=== PATIENT | male | born 1975 | race African-American/Black ===

== ENCOUNTER 2019-03-08 08:35 | Emergency (ER) | payer BC, OTHER ==
[2019-03-08 08:41] VITALS: BP 135/84; PULSE 65; TEMP 98.4; BMI 36.2
[2019-03-08] MEDS ORDERED: IBUPROFEN 400 MG TABLET (FP) PO ONE ×2 (09:09→09:12)
--- NOTE | 2019-03-08 10:05 | PDOC ---
History of Present Illness - General Chief Complaint: Sore Throat Stated Complaint: SORE THROAT Time Seen by Provider: 03/08/19 09:03 History Source: Patient - History of Present Illness Timing/Duration: reports: yesterday Past History - Past Medical History Allergies/Adverse Reactions: Allergies Allergy/AdvReac Type Severity Reaction Status Date / Time No Known Allergies Allergy Verified 03/08/19 08:37 Home Medications: Ambulatory Orders Ibuprofen 800 mg PO TID PRN #30 tablet 11/13/15 COPD: No - Psycho Social/Smoking Cessation Hx Smoking History: Never smoked Have you smoked in the past 12 months: No Number of Cigarettes Smoked Daily: 3 'Breaking Loose' booklet given: 11/13/15 Hx Alcohol Use: No Drug/Substance Use Hx: No Substance Use Type: None Review of Systems - Review of Systems Constitutional: Yes: Chills. No: Fever HEENTM: Yes: Throat Pain. No: Ear Pain Respiratory: No: Cough *Physical Exam - Vital Signs Last Vital Signs Temp Pulse Resp BP Pulse Ox 98.4 F 65 16 135/84 100 03/08/19 08:38 03/08/19 08:38 03/08/19 08:38 03/08/19 08:38 03/08/19 08:38 - Physical Exam General Appearance: Yes: Appropriately Dressed. No: Apparent Distress HEENT: positive: Normal ENT Inspection, Normal Voice, TMs Normal, Pharynx Normal. negative: Scleral Icterus (R), Scleral Icterus (L) Neck: positive: Supple. negative: Lymphadenopathy (R), Lymphadenopathy (L) Respiratory/Chest: negative: Respiratory Distress Integumentary: positive: Dry, Warm Neurologic: positive: Fully Oriented, Alert, Normal Mood/Affect ED Treatment Course - Medications Given in the ED: ED Medications Discontinued Medications Generic Name Dose Route Start Last Admin Trade Name Freq PRN Reason Stop Dose Admin Ibuprofen 800 mg 03/08/19 09:12 03/08/19 09:13 Motrin - PO 03/08/19 09:13 800 mg ONCE ONE Administration Medical Decision Making - Medical Decision Making 03/08/19 10:02 44 yo M, no sog hx, here w/ sore throat x 2 days. No cough, ear pain, f/c. Has not taken anything for pain see exam M/l viral pharyngitis Exam wnl Rapid strep neg Dc w/ pain control Discharge - Discharge Information Problems reviewed: Yes Clinical Impression/Diagnosis: Pharyngitis Qualifiers: Pharyngitis/tonsillitis etiology: unspecified etiology Qualified Code(s): J02.9 - Acute pharyngitis, unspecified Condition: Improved Disposition: HOME - Follow up/Referral - Patient Discharge Instructions Patient Printed Discharge Instructions: Viral Pharyngitis Additional Instructions: Your strep is negative Take motrin as every 6 hrs as needed for pain - Post Discharge Activity Work/Back to School Note: Back to Work
== END 2019-03-08 10:18 | disposition home or self-care (01) ==
LOC: JERFT 08:35
DX: J02.9 Acute pharyngitis, unspecified (principal)
CPT/HCPCS: 87070; 87880; 99282-25

== ENCOUNTER 2021-07-21 19:13 | Inpatient (IN) | payer OTHER ==
[2021-07-21] MEDS ORDERED: ACETAMINOPHEN 1000 MG/100 ML BAG IVPB ONE (21:04)
[2021-07-21] MEDS ORDERED: SODIUM CHLORIDE 0.9% 500 ML INFUS.BAG IV ONE (21:04)
[2021-07-21] MEDS ORDERED: LIDOCAINE 5% TOPICAL PATCH TP ONE (21:05)
[2021-07-21] MEDS ORDERED: LIDOCAINE 5% TOPICAL PATCH ONE (21:18)
[2021-07-21] MEDS ORDERED: ACETAMINOPHEN INJECTION 100 ML IVPB ONE (21:18)
[2021-07-21] MEDS ORDERED: ONDANSETRON 4 MG/2 ML VIAL IVPUSH ONE (21:22)
[2021-07-21] MEDS ORDERED: morphine CARPU-JECT 4 MG/1 ML DISP.SYRIN IVPUSH ONE (21:22)
[2021-07-21] MEDS ORDERED: morphine SULFATE 4 MG/ML VIAL ONE (21:24)
[2021-07-21] MEDS ORDERED: ONDANSETRON 4 MG/2 ML VIAL ONE (21:25)
[2021-07-21 21:53] LABS: BASO % 0.2 % (0-2.0); EOS % 0.4 % (0-4.5); HEMATOCRIT 41.9 % (35.4-49); HEMOGLOBIN 13.8 GM/dL (11.7-16.9); LYMPH % 13.2 % (8-40); MCH 29.1 pg (25.7-33.7); MCHC 32.9 g/dl (32.0-35.9); MEAN CELL VOLUME 88.5 fl (80-96); MEAN PLT VOLUME 8.5 fl (7.5-11.1); MONO % 4.3 % (3.8-10.2); NEUT % 81.9 % (42.8-82.8); PLATELET COUNT 216 10^3/uL (134-434); RBC 4.74 M/mm3 (4.00-5.60); RDW 14.2 % (11.9-15.9); WHITE BLOOD COUNT 12.4 K/mm3 (4.0-10.0)
[2021-07-21 22:04] LABS: INR 1.06 (0.83-1.09); PROTHROMBIN TIME (PATIENT) 12.2 SEC (9.7-13.0)
[2021-07-21 22:07] LABS: ACTIVATED PTT 27.6 SECONDS (25.2-36.5)
[2021-07-21 22:18] LABS: CALCIUM 9.3 mg/dL (8.5-10.1)
[2021-07-21 22:19] LABS: BLOOD UREA NITROGEN 12.2 mg/dL (7-18)
[2021-07-21 22:22] LABS: CREATININE 1.8 mg/dL (0.55-1.3)
[2021-07-21 22:23] LABS: TOT PROT 7.8 g/dl (6.4-8.2)
[2021-07-21 22:24] LABS: BILIRUBIN,TOTAL 0.5 mg/dL (0.2-1)
[2021-07-21] MEDS ORDERED: morphine CARPU-JECT 2 MG/1 ML DISP.SYRIN IVPUSH ONE (22:37)
[2021-07-21] MEDS ORDERED: KETOROLAC TROMETHAMINE 15 MG/ML VIAL IVPUSH ONE (23:11)
[2021-07-21] MEDS ORDERED: KETOROLAC TROMETHAMINE 15 MG/ML VIAL ONE (23:14)
[2021-07-22] MEDS ORDERED: SODIUM CHLORIDE 0.9% 500 ML INFUS.BAG IV ONE (00:04)
[2021-07-22 01:57] LABS: EPI CELLS 15 /uL (0-25.1); HYALINE CASTS 0 /uL (0-3.1); PH,URINE 8.5 (5.0-8.0); URINE APPEARANCE CLEAR; URINE BACTERIA 13 /uL (0-1359); URINE BILIRUBIN NEGATIVE (NEGATIVE); URINE COLOR YELLOW; URINE GLUCOSE (UA) NEGATIVE (NEGATIVE); URINE KETONE 1+ (NEGATIVE); URINE LEUK ESTERASE NEGATIVE (NEGATIVE); URINE NITRITE NEGATIVE (NEGATIVE); URINE PROTEIN NEGATIVE (NEGATIVE); URINE RBC 247 /uL (0-23.9); URINE UROBILINOGEN 0.2 mg/dL (0.2-1.0); URINE WBC 8 /uL (0-25.8)
[2021-07-22] MEDS ORDERED: TAMSULOSIN HCL 0.4 MG CAP PO ONE (05:32)
[2021-07-22] MEDS ORDERED: TAMSULOSIN HCL 0.4 MG CAP ONE ×2 (05:39→08:18)
[2021-07-22] MEDS ORDERED: ACETAMINOPHEN INJECTION 100 ML IVPB ONE (05:39)
[2021-07-22] MEDS: LACTATED RINGERS SOLUTION 1,000 ML IV SCH ×3 (05:48→12:47)
[2021-07-22] MEDS: ACETAMINOPHEN 1000 MG/100 ML BAG IVPB SCH ×2 (05:48→12:48)
[2021-07-22] MEDS: HEPARIN NA (PORCINE) 5,000 UNITS/ML 1ML VIAL SQ SCH ×3 (07:02→23:05)
[2021-07-22] MEDS: LIDOCAINE PATCH REMOVAL MC SCH ×2 (09:57→23:05)
[2021-07-22 10:10] VITALS: BMI 37.8
[2021-07-22 10:25] LABS: BASO % 0.9 % (0-2.0); EOS % 0.2 % (0-4.5); HEMATOCRIT 41.8 % (35.4-49); HEMOGLOBIN 13.8 GM/dL (11.7-16.9); LYMPH % 22.5 % (8-40); MCH 29.5 pg (25.7-33.7); MEAN CELL VOLUME 89.3 fl (80-96); MEAN PLT VOLUME 8.5 fl (7.5-11.1); NEUT % 70.4 % (42.8-82.8); PLATELET COUNT 211 10^3/uL (134-434); RBC 4.67 M/mm3 (4.00-5.60); RDW 14.2 % (11.9-15.9); WHITE BLOOD COUNT 10.7 K/mm3 (4.0-10.0)
[2021-07-22 10:46] LABS: CALCIUM 8.8 mg/dL (8.5-10.1)
[2021-07-22 10:47] LABS: ALBUMIN 3.4 g/dl (3.4-5.0); BLOOD UREA NITROGEN 11.6 mg/dL (7-18); MAGNESIUM 2.2 mg/dL (1.8-2.4)
[2021-07-22 10:50] LABS: CREATININE 1.6 mg/dL (0.55-1.3); PHOSPHOROUS 3.8 mg/dL (2.5-4.9)
[2021-07-22 10:51] LABS: BILIRUBIN,TOTAL 0.5 mg/dL (0.2-1); TOT PROT 6.6 g/dl (6.4-8.2)
[2021-07-22] MEDS ORDERED: ACETAMINOPHEN 1000 MG/100 ML BAG IVPB PRN (13:54)
[2021-07-23] MEDS: HEPARIN NA (PORCINE) 5,000 UNITS/ML 1ML VIAL SQ SCH ×3 (05:02→21:38)
[2021-07-23] MEDS: LACTATED RINGERS SOLUTION 1,000 ML IV SCH ×3 (05:02→23:00)
[2021-07-23] MEDS ORDERED: TAMSULOSIN HCL 0.4 MG CAP PO SCH (08:30)
[2021-07-23] MEDS: TAMSULOSIN HCL 0.4 MG CAP PO SCH (09:58)
[2021-07-23 10:05] LABS: HEMATOCRIT 40.5 % (35.4-49); HEMOGLOBIN 13.6 GM/dL (11.7-16.9); MCH 29.7 pg (25.7-33.7); MCHC 33.5 g/dl (32.0-35.9); MEAN CELL VOLUME 88.8 fl (80-96); PLATELET COUNT 190 10^3/uL (134-434); RBC 4.56 M/mm3 (4.00-5.60); RDW 13.9 % (11.9-15.9); WHITE BLOOD COUNT 6.8 K/mm3 (4.0-10.0)
[2021-07-23 10:23] LABS: CALCIUM 8.7 mg/dL (8.5-10.1)
[2021-07-23 10:24] LABS: BLOOD UREA NITROGEN 9.2 mg/dL (7-18)
[2021-07-23 10:27] LABS: CREATININE 1.4 mg/dL (0.55-1.3)
[2021-07-23] MEDS: LIDOCAINE PATCH REMOVAL MC SCH (21:38)
[2021-07-24] MEDS: HEPARIN NA (PORCINE) 5,000 UNITS/ML 1ML VIAL SQ SCH ×2 (05:30→13:33)
[2021-07-24] MEDS: TAMSULOSIN HCL 0.4 MG CAP PO SCH (08:15)
[2021-07-24] MEDS: LACTATED RINGERS SOLUTION 1,000 ML IV SCH (08:16)
[2021-07-24 08:57] LABS: HEMATOCRIT 42.5 % (35.4-49); MCH 29.3 pg (25.7-33.7); MCHC 32.8 g/dl (32.0-35.9); MEAN CELL VOLUME 89.1 fl (80-96); MEAN PLT VOLUME 9.5 fl (7.5-11.1); PLATELET COUNT 193 10^3/uL (134-434); RBC 4.77 M/mm3 (4.00-5.60); RDW 14.3 % (11.9-15.9); WHITE BLOOD COUNT 5.8 K/mm3 (4.0-10.0)
[2021-07-24 09:11] LABS: BLOOD UREA NITROGEN 9.4 mg/dL (7-18); CALCIUM 9.1 mg/dL (8.5-10.1)
[2021-07-24 09:14] LABS: CREATININE 1.4 mg/dL (0.55-1.3)
[2021-07-24 15:41] VITALS: BP 145/108; PULSE 76; TEMP 98.2
== END 2021-07-24 15:42 | disposition home or self-care (01) | DRG 465 ==
LOC: JER 19:13 → JERBED 07-22 02:09 → J8W 07-22 09:31
PROVIDERS: ADMIT Hospitalist; ATTEND Internal Medicine
DX: N13.2 Hydronephrosis with renal and ureteral calculous obstruction (principal); E27.8 Other specified disorders of adrenal gland; R00.1 Bradycardia, unspecified; E66.9 Obesity, unspecified; Z68.37 Body mass index [BMI] 37.0-37.9, adult
CPT/HCPCS: 36415; 71275-TC; 74018-TC-FY; 74174-TC; 80048; 80053; 81003; 82626; 83735; 84100; 84484; 85025; 85027; 85610; 85730; 87086; 93005; 93010; 99285-25; C9803-CS; J1644; Q9967; U0003; U0005

== ENCOUNTER 2022-05-09 14:36 | Emergency (ER) | payer OTHER ==
[2022-05-09 15:22] VITALS: BP 123/73; PULSE 89; RESP 18; TEMP 98; BMI 37.6
[2022-05-09] MEDS ORDERED: FAMOTIDINE 20 MG/50 ML IVPB 20 MG/50 ML MG IVPB ONE ×2 (17:10→18:20)
[2022-05-09] MEDS ORDERED: MAG HYDROX/AL HYDROX/SIMETH 30 ML UNIT-DOSE CUP PO ONE (17:10)
[2022-05-09] MEDS ORDERED: MAG HYDROX/AL HYDROX/SIMETH 30 ML UNIT-DOSE CUP ONE (18:20)
[2022-05-09 18:23] LABS: PH,URINE 5.5 (5.0-8.0); URINE APPEARANCE CLEAR; URINE BILIRUBIN NEGATIVE (NEGATIVE); URINE COLOR YELLOW; URINE GLUCOSE (UA) NEGATIVE (NEGATIVE); URINE KETONE TRACE (NEGATIVE); URINE LEUK ESTERASE NEGATIVE (NEGATIVE); URINE NITRITE NEGATIVE (NEGATIVE); URINE PROTEIN TRACE (NEGATIVE)
[2022-05-09 18:24] LABS: BASO % 1.2 % (0-2.0); EOS % 0.8 % (0-4.5); HEMATOCRIT 41.6 % (35.4-49); HEMOGLOBIN 13.7 GM/dL (11.7-16.9); MCH 29.1 pg (25.7-33.7); MCHC 32.8 g/dl (32.0-35.9); MEAN CELL VOLUME 88.6 fl (80-96); MEAN PLT VOLUME 8.1 fl (7.5-11.1); MONO % 5.1 % (3.8-10.2); NEUT % 58.9 % (42.8-82.8); PLATELET COUNT 246 10^3/uL (134-434); RDW 14.8 % (11.9-15.9); WHITE BLOOD COUNT 9.7 K/mm3 (4.0-10.0)
[2022-05-09] MEDS ORDERED: ACETAMINOPHEN 1000 MG/100 ML BAG IVPB ONE (18:34)
[2022-05-09 18:43] LABS: ALBUMIN 3.6 g/dl (3.4-5.0); BLOOD UREA NITROGEN 11.9 mg/dL (7-18); CALCIUM 9.3 mg/dL (8.5-10.1)
[2022-05-09 18:46] LABS: CREATININE 1.6 mg/dL (0.55-1.3)
[2022-05-09 18:48] LABS: BILIRUBIN,TOTAL 0.5 mg/dL (0.2-1); TOT PROT 7.7 g/dl (6.4-8.2)
[2022-05-09] MEDS ORDERED: ACETAMINOPHEN INJECTION 100 ML IVPB ONE (19:03)
[2022-05-09] MEDS ORDERED: LACTATED RINGERS SOLUTION 1000 ML INFUS.BAG IV ONE (19:04)
[2022-05-09 19:51] LABS: CALCIUM 9.3 mg/dL (8.5-10.1)
[2022-05-09 19:52] LABS: BLOOD UREA NITROGEN 11.5 mg/dL (7-18)
[2022-05-09 19:55] LABS: CREATININE 1.4 mg/dL (0.55-1.3)
== END 2022-05-09 20:17 | disposition home or self-care (01) ==
LOC: JER 14:36
PROC: 3E033GC Introduction of Other Therapeutic Substance into Peripheral Vein, Percutaneous Approach (ICD-10-PCS; principal; 2022-05-09)
PROC: 3E033NZ Introduction of Analgesics, Hypnotics, Sedatives into Peripheral Vein, Percutaneous Approach (ICD-10-PCS; 2022-05-09)
DX: N18.9 Chronic kidney disease, unspecified (principal); R10.10 Upper abdominal pain, unspecified; Z20.822 Contact with and (suspected) exposure to COVID-19
CPT/HCPCS: 0241U-QW; 36415; 71046-TC-FY; 74018-TC-FY; 76705-TC; 80048; 80053; 81003; 83690; 84484; 85025; 87086; 93005; 93010; 99285-25

== ENCOUNTER 2022-06-02 10:05 | Emergency (ER) | payer OTHER ==
[2022-06-02 10:09] VITALS: BP 129/79; PULSE 77; RESP 18; TEMP 98.7; BMI 37.6
== END 2022-06-02 11:59 | disposition home or self-care (01) ==
LOC: JER 10:05
DX: R10.13 Epigastric pain (principal)
CPT/HCPCS: 99282-25

== ENCOUNTER 2023-09-15 09:24 | Emergency (ER) | payer OTHER ==
[2023-09-15 09:30] VITALS: BP 133/78; PULSE 57; RESP 16; TEMP 98.1; BMI 34.8
[2023-09-15] MEDS ORDERED: METOCLOPRAMIDE HCL INJECTION 10 MG/2 ML VIAL ONE (09:59)
[2023-09-15] MEDS ORDERED: ACETAMINOPHEN INJECTION 100 ML IVPB ONE (10:00)
[2023-09-15] MEDS: METOCLOPRAMIDE HCL INJECTION 10 MG/2 ML VIAL IVPB ONE (10:14)
[2023-09-15] MEDS: ACETAMINOPHEN 1000 MG/100 ML BAG IVPB ONE (10:14)
[2023-09-15] MEDS: SODIUM CHLORIDE 1,000 ML IV STA (10:14)
[2023-09-15 10:18] LABS: BASO % 0.5 % (0-2.0); EOS % 1.2 % (0-4.5); HEMATOCRIT 41.1 % (35.4-49); HEMOGLOBIN 13.9 GM/dL (11.7-16.9); LYMPH % 40.5 % (8-40); MCH 30.3 pg (25.7-33.7); MCHC 33.7 g/dl (32.0-35.9); MEAN CELL VOLUME 89.8 fl (80-96); MEAN PLT VOLUME 8.1 fl (7.5-11.1); MONO % 4.7 % (3.8-10.2); NEUT % 53.1 % (42.8-82.8); PLATELET COUNT 213 10^3/uL (134-434); RBC 4.57 M/mm3 (4.00-5.60); RDW 14.6 % (11.9-15.9); WHITE BLOOD COUNT 6.8 K/mm3 (4.0-10.0)
[2023-09-15 10:43] LABS: POTASSIUM 4.3 mmol/L (3.5-5.1)
[2023-09-15 10:44] LABS: CALCIUM 9.5 mg/dL (8.5-10.1)
[2023-09-15 10:45] LABS: ALBUMIN 3.8 g/dl (3.4-5.0)
[2023-09-15 10:48] LABS: CREATININE 1.5 mg/dL (0.55-1.3)
[2023-09-15 10:49] LABS: BILIRUBIN,TOTAL 0.2 mg/dL (0.2-1)
[2023-09-15 10:50] LABS: TOT PROT 7.3 g/dl (6.4-8.2)
== END 2023-09-15 11:46 | disposition home or self-care (01) ==
LOC: JER 09:24
PROC: 3E033GC Introduction of Other Therapeutic Substance into Peripheral Vein, Percutaneous Approach (ICD-10-PCS; principal; 2023-09-15)
PROC: 3E033NZ Introduction of Analgesics, Hypnotics, Sedatives into Peripheral Vein, Percutaneous Approach (ICD-10-PCS; 2023-09-15)
PROC: 3E0337Z Introduction of Electrolytic and Water Balance Substance into Peripheral Vein, Percutaneous Approach (ICD-10-PCS; 2023-09-15)
DX: R51.9 Headache, unspecified (principal); R11.0 Nausea
CPT/HCPCS: 36415; 70450-TC; 80053; 85025; 99284-25; J0131

== ENCOUNTER 2023-12-03 07:12 | Emergency (ER) | payer OTHER ==
[2023-12-03 07:25] VITALS: BP 129/73; PULSE 68; RESP 18; TEMP 98.8; BMI 32.1
== END 2023-12-03 09:13 | disposition home or self-care (01) ==
LOC: JER 07:12
DX: R05.9 Cough, unspecified (principal); R09.81 Nasal congestion; J06.9 Acute upper respiratory infection, unspecified; R10.9 Unspecified abdominal pain; K59.00 Constipation, unspecified; Z20.822 Contact with and (suspected) exposure to COVID-19
CPT/HCPCS: 0241U-QW; 71046-TC-FY; 99284-25

== ENCOUNTER 2024-04-27 09:12 | Emergency (ER) | payer OTHER ==
[2024-04-27 09:26] VITALS: BP 148/79; PULSE 61; RESP 20; TEMP 98.7; BMI 36.2
[2024-04-27] MEDS ORDERED: ACETAMINOPHEN INJECTION 100 ML ONE (10:24)
[2024-04-27] MEDS: ACETAMINOPHEN 1000 MG/100 ML BAG IVPB ONE (10:28)
[2024-04-27] MEDS: SODIUM CHLORIDE 0.9% 500 ML INFUS.BAG IV ONE (10:28)
[2024-04-27 10:30] LABS: ABSOLUTE IMMATURE GRANULOCYTES 0.02 x10^3/uL (0.0-0.031); BASOPHILS # 0.02 x10^3/uL (0.01-0.08); EOSINOPHIL % 0.3 % (0.8-7.0); EOSINOPHILS # 0.03 x10^3/uL (0.04-0.54); HEMATOCRIT 46.1 % (40.1-51.0); HEMOGLOBIN 14.6 g/dL (13.7-17.5); MCHC 31.7 g/dl (32.3-36.5); MEAN CELL VOLUME 90.6 fl (79.0-92.2); MEAN PLT VOLUME 9.4 fl (9.4-12.4); MONOCYTE # 0.37 x10^3/uL (0.30-0.82); PLATELET COUNT # 296 x10^3/uL (163-337); RDW 13.2 % (12.1-15.9)
[2024-04-27 10:49] LABS: POTASSIUM 4.4 mmol/L (3.5-5.1)
[2024-04-27 10:51] LABS: ALBUMIN 3.8 g/dl (3.4-5.0)
[2024-04-27 10:52] LABS: BLOOD UREA NITROGEN 8.7 mg/dL (7-18); CALCIUM 9.7 mg/dL (8.5-10.1)
[2024-04-27 10:56] LABS: BILIRUBIN,TOTAL 0.5 mg/dL (0.2-1); CREATININE 1.4 mg/dL (0.55-1.3)
[2024-04-27 10:58] LABS: TOT PROT 7.6 g/dl (6.4-8.2)
[2024-04-27 11:54] LABS: HCV DIAGNOSTIC IN-HOUSE W/RFLX NON-REACTIVE (NONREACTIVE)
[2024-04-27 11:56] LABS: HIV INTERPRETATION NEGATIVE (NEGATIVE)
[2024-04-27] MEDS ORDERED: KETOROLAC TROMETHAMINE 30 MG/1 ML VIAL ONE (12:53)
[2024-04-27] MEDS: KETOROLAC TROMETHAMINE 30 MG/1 ML VIAL IVPUSH ONE (12:58)
== END 2024-04-27 13:35 | disposition home or self-care (01) ==
LOC: JER 09:12
PROC: 3E033NZ Introduction of Analgesics, Hypnotics, Sedatives into Peripheral Vein, Percutaneous Approach (ICD-10-PCS; principal; 2024-04-27)
PROC: 3E0333Z Introduction of Anti-inflammatory into Peripheral Vein, Percutaneous Approach (ICD-10-PCS; 2024-04-27)
DX: R53.83 Other fatigue (principal); M79.10 Myalgia, unspecified site; B34.9 Viral infection, unspecified
CPT/HCPCS: 0241U-QW; 36415; 71046-TC-FY; 80053; 85025; 86803; 87389; 99284-25; J0131